=== PATIENT | female | born 1975 | race Caucasian/White ===

== ENCOUNTER → 2020-04-26 12:21 | Outpatient (CLI) | payer SELFPAY, OTHER ==
--- NOTE | 2020-04-26 12:31 | MRI_ITS ---
STUDY: MRI LUMBAR SPINE WITHOUT CONTRAST REASON FOR EXAM: Female, 45 years old. lumbar sprain of ligaments TECHNIQUE: Standardized fat and water weighted pulse sequences were obtained in the sagittal and axial planes. COMPARISON: None FINDINGS: T12-L1: Normal endplates. Normal disc height, hydration and morphology. Normal bilateral facet joints. Normal central canal and bilateral lateral recesses. Normal bilateral intervertebral neural foramina. Normal lumbar lordosis. There is no substantial scoliosis. Normal conus medullaris that terminates at the L1. L1-2: Normal endplates. Normal disc height, hydration and morphology. Normal bilateral facet joints. Normal central canal and bilateral lateral recesses. Normal bilateral intervertebral neural foramina. L2-3: Normal endplates. Normal disc height, hydration and morphology. Normal bilateral facet joints. Normal central canal and bilateral lateral recesses. Normal bilateral intervertebral neural foramina. L3-4: Normal endplates. Normal disc height, hydration and morphology. Normal bilateral facet joints. Normal central canal and bilateral lateral recesses. Normal bilateral intervertebral neural foramina. L4-5: Mild broad disc protrusion produces minimal spinal stenosis and mild bilateral neural foraminal stenosis. L5-S1: Normal endplates. Normal disc height, hydration and morphology. Normal bilateral facet joints. Normal central canal and bilateral lateral recesses. Normal bilateral intervertebral neural foramina. Normal visualized sacral ala. Normal visualized paraspinous soft tissue structures. MRI/Spine Lumbar (Routine) IMPRESSION: Mild focal degenerative disc disease at L4/L5. Electronically Signed: Rivera Kothari MD at 16:59 EDT Tel , Service support ,
--- NOTE | 2020-04-26 12:32 | MRI_ITS ---
STUDY: MR PELVIS WITHOUT CONTRAST REASON FOR EXAM: Female, 45 years old. pain in pubic area radiating down medial rt thigh TECHNIQUE: Standardized fat and water weighted pulse sequences were obtained in all 3 orthogonal planes. COMPARISON: None. FINDINGS: Normal urinary bladder. Normal visualized small intestine. Normal visualized colon. There is no pelvic fluid. There is no pelvic mass lesion or lymphadenopathy. Normal visualized pelvic arteries. Normal osseous structures. Normal abdominal wall. MRI/Pelvis (Routine) IMPRESSION: Normal unenhanced MRI of the pelvis. Electronically Signed: Rivera Kothari MD at 16:57 EDT Tel , Service support ,
== END ==
PROVIDERS: PCP Family Medicine
DX: M99.03 Segmental and somatic dysfunction of lumbar region (principal); S33.5XXA Sprain of ligaments of lumbar spine, initial encounter
CPT/HCPCS: 72148; 72195